=== PATIENT | male | born 1950 | race Caucasian/White ===

== ENCOUNTER 2020-04-06 16:05 | Inpatient (IN) ==
[2020-04-06] MEDS ORDERED: Isovue-370 500 ML BOTTLE IVP ONE (16:21)
[2020-04-06 16:33] LABS: Basophils # 0.1 K/mcL (0.0-0.2); Basophils % 0.8 %; Eosinophils # 0.5 K/mcL (0.0-0.6); Eosinophils % 6.9 %; Hematocrit 21.3 % (37.5-50.1); Hemoglobin 6.3 g/dL (12.9-16.9); Immature Granulocytes % 0.6 % (0-4); Lymphocytes # 0.8 K/mcL (0.6-4.6); Lymphocytes % 11.5 %; Mean Corpuscular HGB Conc 29.6 g/dL (31.6-35.5); Mean Corpuscular Hemoglobin 25.7 pg (28.0-33.3); Mean Corpuscular Volume 86.9 fL (83.0-100.0); Mean Platelet Volume 9.5 fL (9.4-12.4); Monocytes # 0.7 K/mcL (0.0-1.3); Monocytes % 10.9 %; Neutrophils # 4.5 K/mcL (1.6-8.9); Platelet Count 273 K/mcL (140-400); Red Blood Count 2.45 M/mcL (4.19-5.50); Red Cell Distribution Width 16.1 % (11.5-14.5); Segmented Neutrophils % 69.3 %; White Blood Count 6.5 K/mcL (4.3-11.1)
[2020-04-06 16:40] LABS: INR 1.6; Prothrombin Time 18.3 Seconds (9.4-12.1)
[2020-04-06 17:05] LABS: Alanine Aminotransferase 9 Units/L (7-52); Albumin 3.4 g/dL (3.5-5.7); Albumin/Globulin Ratio 1.3 (1.1-2.2); Alkaline Phosphatase 114 Units/L (34-104); Aspartate Amino Transferase 13 Units/L (13-39); BUN/Creatinine Ratio 17 (6-26); Bilirubin,Total 0.5 mg/dL (0.3-1.0); Blood Urea Nitrogen 19 mg/dL (8-23); Calcium 8.5 mg/dL (8.6-10.3); Carbon Dioxide 21 mEq/L (23-29); Chloride 110 mEq/L (98-107); Globulin 2.6 g/dL (2.4-3.5); Glucose 105 mg/dL (70-105); Magnesium 1.7 mg/dL (1.6-2.6); Osmolality,Calculated 291 (280-300); Potassium 4.1 mEq/L (3.5-5.1); Sodium 139 mEq/L (136-145); Troponin I < 0.03 ng/mL (< 0.04); eGFR For African Americans > 60 (> 60); eGFR For Non-African Americans > 60 (> 60)
[2020-04-06] MEDS ORDERED: 0.9 % Sodium Chloride 250 ML ONE ×2 (18:03→22:46)
[2020-04-06] MEDS ORDERED: Naloxone 0.4 MG/ML INJ IVP PRN (19:41)
[2020-04-06] MEDS ORDERED: Ondansetron 4 MG/2 ML VIAL IVP PRN (19:41)
[2020-04-06] MEDS ORDERED: Miconazole 2% ointment 141 APPL/141 GM TUBE TP PRN (19:50)
[2020-04-06] MEDS ORDERED: Loratadine 10 MG TABLET PO PRN (19:50)
[2020-04-06] MEDS ORDERED: Magnesium Oxide 400 MG TABLET PO PRN (19:50)
[2020-04-06] MEDS ORDERED: 0.9 % Sodium Chloride 250 ML IVC SCH (20:15)
[2020-04-07] MEDS: Pantoprazole 40 MG VIAL IVP SCH ×2 (05:38→18:37)
[2020-04-07 05:48] LABS: Hemoglobin 7.7 g/dL (12.9-16.9)
[2020-04-07 05:50] LABS: INR 1.4; Prothrombin Time 16.1 Seconds (9.4-12.1)
[2020-04-07 06:19] LABS: Alanine Aminotransferase 7 Units/L (7-52); Albumin 3.1 g/dL (3.5-5.7); Albumin/Globulin Ratio 1.4 (1.1-2.2); Alkaline Phosphatase 107 Units/L (34-104); Aspartate Amino Transferase 12 Units/L (13-39); BUN/Creatinine Ratio 15 (6-26); Bilirubin,Total 0.6 mg/dL (0.3-1.0); Blood Urea Nitrogen 17 mg/dL (8-23); Calcium 8.2 mg/dL (8.6-10.3); Carbon Dioxide 22 mEq/L (23-29); Chloride 110 mEq/L (98-107); Globulin 2.2 g/dL (2.4-3.5); Glucose 89 mg/dL (70-105); Magnesium 1.6 mg/dL (1.6-2.6); Osmolality,Calculated 287 (280-300); Potassium 4.3 mEq/L (3.5-5.1); Sodium 138 mEq/L (136-145); Total Protein 5.3 g/dL (6.4-8.9); eGFR For African Americans > 60 (> 60); eGFR For Non-African Americans > 60 (> 60)
[2020-04-07 11:27] LABS: Hematocrit 27.2 % (37.5-50.1); Hemoglobin 8.1 g/dL (12.9-16.9)
[2020-04-07] MEDS ORDERED: *HR* FentaNYL (PF) 100 MCG/2 ML VIAL ONE (12:06)
[2020-04-07] MEDS ORDERED: *HR* Midazolam HCl 5 MG/5 ML VIAL IVP ONE ×2 (12:07→12:37)
[2020-04-07] MEDS ORDERED: *HR* FentaNYL (PF) 100 MCG/2 ML VIAL IVP ONE (12:37)
[2020-04-07] MEDS ORDERED: Simethicone 40 MG/0.6 ML MLS IR ONE (12:37)
[2020-04-07] MEDS ORDERED: Tetracaine/Benzocaine/Butamben 1 SPRAY AEROSOL MM ONE (12:37)
[2020-04-07 18:24] LABS: Hemoglobin 8.8 g/dL (12.9-16.9)
[2020-04-08 03:42] LABS: Basophils % 0.6 %; Eosinophils # 0.7 K/mcL (0.0-0.6); Eosinophils % 10.4 %; Hematocrit 28.2 % (37.5-50.1); Hemoglobin 8.6 g/dL (12.9-16.9); Immature Granulocytes % 0.3 % (0-4); Lymphocytes # 0.6 K/mcL (0.6-4.6); Lymphocytes % 9.1 %; Mean Corpuscular HGB Conc 30.5 g/dL (31.6-35.5); Mean Corpuscular Hemoglobin 26.1 pg (28.0-33.3); Mean Corpuscular Volume 85.5 fL (83.0-100.0); Mean Platelet Volume 10.4 fL (9.4-12.4); Monocytes # 0.7 K/mcL (0.0-1.3); Monocytes % 10.6 %; Neutrophils # 4.6 K/mcL (1.6-8.9); Platelet Count 254 K/mcL (140-400); Red Cell Distribution Width 15.5 % (11.5-14.5); White Blood Count 6.7 K/mcL (4.3-11.1)
[2020-04-08 04:09] LABS: BUN/Creatinine Ratio 15 (6-26); Blood Urea Nitrogen 14 mg/dL (8-23); Calcium 8.3 mg/dL (8.6-10.3); Carbon Dioxide 20 mEq/L (23-29); Chloride 109 mEq/L (98-107); Glucose 88 mg/dL (70-105); Magnesium 1.7 mg/dL (1.6-2.6); Osmolality,Calculated 286 (280-300); Phosphorous 3.4 mg/dL (2.7-4.5); Potassium 3.9 mEq/L (3.5-5.1); Sodium 138 mEq/L (136-145); eGFR For African Americans > 60 (> 60); eGFR For Non-African Americans > 60 (> 60)
[2020-04-08] MEDS: Pantoprazole 40 MG VIAL IVP SCH (05:24)
[2020-04-08] MEDS: lisinopriL 5 MG TABLET PO SCH (09:36)
[2020-04-08] MEDS ORDERED: 0.9 % Sodium Chloride 10 ML PF VIAL IR ONE (12:58)
[2020-04-08] MEDS ORDERED: *HR* Phenylephrine 10 MG/ML VIAL IVC ONE (12:58)
[2020-04-08] MEDS ORDERED: *HR* Propofol 500 MG/50 ML BOTTLE IVC ONE (12:58)
[2020-04-08] MEDS ORDERED: Lidocaine -MPF 2% 5 ML VIAL SQ ONE (12:58)
[2020-04-08] MEDS ORDERED: *HR* Water for inj. (sterile) Vial IV ONE (12:58)
[2020-04-08] MEDS: Aspirin 81 MG TAB.CHEW PO SCH (18:39)
[2020-04-08 19:07] LABS: BUN/Creatinine Ratio 10 (6-26); Blood Urea Nitrogen 11 mg/dL (8-23); Calcium 8.4 mg/dL (8.6-10.3); Carbon Dioxide 19 mEq/L (23-29); Chloride 109 mEq/L (98-107); Glucose 140 mg/dL (70-105); Osmolality,Calculated 284 (280-300); Potassium 4.3 mEq/L (3.5-5.1); Sodium 136 mEq/L (136-145); eGFR For African Americans > 60 (> 60); eGFR For Non-African Americans > 60 (> 60)
[2020-04-09 02:29] LABS: Hematocrit 28.3 % (37.5-50.1); Hemoglobin 8.5 g/dL (12.9-16.9); Mean Corpuscular Volume 86.5 fL (83.0-100.0); Mean Platelet Volume 9.9 fL (9.4-12.4); Platelet Count 238 K/mcL (140-400); Red Blood Count 3.27 M/mcL (4.19-5.50); Red Cell Distribution Width 15.6 % (11.5-14.5); White Blood Count 6.2 K/mcL (4.3-11.1)
[2020-04-09] MEDS ORDERED: Heparin 1,000 UNITS/500 mL 500 ML ONE ×2 (07:11→11:32)
[2020-04-09] MEDS ORDERED: Lidocaine/EPI 1:100k 1% 50 ML VIAL ONE ×2 (07:11→11:32)
[2020-04-09] MEDS: lisinopriL 5 MG TABLET PO SCH (13:58)
[2020-04-09] MEDS: Aspirin 81 MG TAB.CHEW PO SCH (13:59)
[2020-04-10 00:51] LABS: Hematocrit 28.3 % (37.5-50.1); Hemoglobin 8.5 g/dL (12.9-16.9); Mean Corpuscular Volume 86.5 fL (83.0-100.0); Mean Platelet Volume 9.7 fL (9.4-12.4); Platelet Count 230 K/mcL (140-400); Red Blood Count 3.27 M/mcL (4.19-5.50); Red Cell Distribution Width 15.7 % (11.5-14.5); White Blood Count 5.5 K/mcL (4.3-11.1)
[2020-04-10 01:13] LABS: BUN/Creatinine Ratio 10 (6-26); Blood Urea Nitrogen 11 mg/dL (8-23); Calcium 8.4 mg/dL (8.6-10.3); Carbon Dioxide 22 mEq/L (23-29); Chloride 110 mEq/L (98-107); Glucose 124 mg/dL (70-105); Osmolality,Calculated 289 (280-300); Potassium 3.7 mEq/L (3.5-5.1); Sodium 139 mEq/L (136-145); eGFR For African Americans > 60 (> 60); eGFR For Non-African Americans > 60 (> 60)
[2020-04-10 07:42] VITALS: BP 105/69
[2020-04-10] MEDS: Aspirin 81 MG TAB.CHEW PO SCH (08:39)
[2020-04-10] MEDS: lisinopriL 5 MG TABLET PO SCH (08:40)
== END 2020-04-10 12:59 | disposition home or self-care (01) | DRG 347 ==
LOC: 2ANU 16:05 → EMEROOARM 16:05 → 2ANU 21:03 → SUATTDRO 04-07 15:58
PROVIDERS: ADMIT Family Medicine; ATTEND Internal Medicine

== ENCOUNTER 2020-04-27 15:21 | Inpatient (IN) ==
[2020-04-27] MEDS ORDERED: Ondansetron 4 MG/2 ML VIAL IVP PRN (19:22)
[2020-04-27] MEDS ORDERED: Ondansetron 4 MG/2 ML VIAL ONE (19:24)
[2020-04-27] MEDS ORDERED: Naloxone 0.4 MG/ML INJ IVP PRN (19:54)
[2020-04-27 20:10] LABS: Eosinophils % 0.5 %; Hematocrit 37.3 % (37.5-50.1); Hemoglobin 11.2 g/dL (12.9-16.9); Immature Granulocytes % 0.5 % (0-4); Lymphocytes # 0.3 K/mcL (0.6-4.6); Lymphocytes % 13.7 %; Mean Corpuscular Volume 86.5 fL (83.0-100.0); Mean Platelet Volume 10.4 fL (9.4-12.4); Monocytes # 0.2 K/mcL (0.0-1.3); Monocytes % 10.9 %; Neutrophils # 1.6 K/mcL (1.6-8.9); Platelet Count 234 K/mcL (140-400); Red Blood Count 4.31 M/mcL (4.19-5.50); Red Cell Distribution Width 15.9 % (11.5-14.5); Segmented Neutrophils % 74.4 %; White Blood Count 2.1 K/mcL (4.3-11.1)
[2020-04-27] MEDS: Pantoprazole 40 MG in 0.9 % Sodium Chloride Mini Bag 100 ML IVC SCH (20:55)
[2020-04-27 21:15] LABS: VBG Ionized Calcium 1.03 mmol/L (1.15-1.35)
[2020-04-27 21:18] LABS: INR 1.1; Prothrombin Time 12.8 Seconds (9.4-12.1)
[2020-04-27 21:20] LABS: Activated Partial Thrombo Time 26.1 Seconds (26.0-36.0)
[2020-04-27 21:26] LABS: Alanine Aminotransferase 16 Units/L (7-52); Albumin 3.4 g/dL (3.5-5.7); Albumin/Globulin Ratio 1.3 (1.1-2.2); Alkaline Phosphatase 102 Units/L (34-104); Aspartate Amino Transferase 17 Units/L (13-39); BUN/Creatinine Ratio 42 (6-26); Bilirubin,Direct 0.4 mg/dL (0.0-0.2); Bilirubin,Indirect 0.7 mg/dL (0.0-1.0); Bilirubin,Total 1.1 mg/dL (0.3-1.0); Blood Urea Nitrogen 47 mg/dL (8-23); Calcium 8.3 mg/dL (8.6-10.3); Carbon Dioxide 17 mEq/L (23-29); Chloride 107 mEq/L (98-107); Globulin 2.6 g/dL (2.4-3.5); Glucose 159 mg/dL (70-105); Magnesium 2.5 mg/dL (1.6-2.6); Osmolality,Calculated 294 (280-300); Phosphorous 3.9 mg/dL (2.7-4.5); Potassium 4.7 mEq/L (3.5-5.1); Sodium 134 mEq/L (136-145); eGFR For African Americans > 60 (> 60); eGFR For Non-African Americans > 60 (> 60)
[2020-04-27] MEDS ORDERED: Calcium Gluconate 1gm/50mL 1 GM/50 ML BAG IVPB PRN (21:51)
[2020-04-27] MEDS ORDERED: Potassium Chloride 40 MEQ/200 ML BAG IVPB PRN (21:51)
[2020-04-27 23:04] LABS: Adenovirus F 40/41 PCR Not detected (Not detect); Astrovirus PCR Not detected (Not detect); C.difficile Toxin A/B Gene PCR Not detected (Not detect); Campylobacter by PCR Not detected (Not detect); Cryptosporidium by PCR Not detected (Not detect); Cyclospora cayetanensis PCR Not detected (Not detect); E. coli O157 by PCR Not detected (Not detect); Entamoeba histolytica PCR Not detected (Not detect); Enteroaggregative E.coli(EAEC) Not detected (Not detect); Enteropathogenic E.coli(EPEC) Not detected (Not detect); Enterotoxigenic E.coli (ETEC) Not detected (Not detect); Giardia lamblia PCR Not detected (Not detect); Norovirus GI/GII PCR Not detected (Not detect); Plesiomonas shigelloides PCR Not detected (Not detect); Rotavirus A PCR Not detected (Not detect); Salmonella PCR Not detected (Not detect); Sapovirus PCR Not detected (Not detect); Shig/EnteroinvasiveE coli EIEC Not detected (Not detect); Shigalike tox-prod E coli STEC Not detected (Not detect); Vibrio PCR Not detected (Not detect); Vibrio cholerae PCR Not detected (Not detect); Yersinia enterocolitica PCR Not detected (Not detect)
[2020-04-28 01:09] LABS: Eosinophils % 0.4 %; Hematocrit 35.6 % (37.5-50.1); Hemoglobin 10.9 g/dL (12.9-16.9); Immature Granulocytes % 1.2 % (0-4); Lymphocytes # 0.3 K/mcL (0.6-4.6); Lymphocytes % 10.7 %; Mean Corpuscular HGB Conc 30.6 g/dL (31.6-35.5); Mean Corpuscular Hemoglobin 25.5 pg (28.0-33.3); Mean Corpuscular Volume 83.4 fL (83.0-100.0); Mean Platelet Volume 10.1 fL (9.4-12.4); Monocytes # 0.3 K/mcL (0.0-1.3); Monocytes % 11.1 %; Platelet Count 227 K/mcL (140-400); Red Blood Count 4.27 M/mcL (4.19-5.50); Red Cell Distribution Width 16.1 % (11.5-14.5); Segmented Neutrophils % 76.6 %; White Blood Count 2.4 K/mcL (4.3-11.1)
[2020-04-28 01:17] LABS: Neutrophils # 1.8 K/mcL (1.6-8.9)
[2020-04-28 01:40] LABS: Platelet Estimate Normal (Normal)
[2020-04-28] MEDS: Pantoprazole 40 MG in 0.9 % Sodium Chloride Mini Bag 100 ML IVC SCH ×6 (02:28→23:12)
[2020-04-28] MEDS ORDERED: Acetaminophen IV 1,000 MG/100 ML INFUS..BTL IVPB ONE ×2 (03:29→20:21)
[2020-04-28] MEDS: 0.9 % Sodium Chloride 1,000 ML IVC SCH ×2 (03:41→17:07)
[2020-04-28 04:37] LABS: Eosinophils % 0.4 %; Hematocrit 34.9 % (37.5-50.1); Hemoglobin 10.6 g/dL (12.9-16.9); INR 1.1; Immature Granulocytes % 0.8 % (0-4); Lymphocytes # 0.2 K/mcL (0.6-4.6); Mean Corpuscular HGB Conc 30.4 g/dL (31.6-35.5); Mean Corpuscular Hemoglobin 25.5 pg (28.0-33.3); Mean Corpuscular Volume 84.1 fL (83.0-100.0); Mean Platelet Volume 10.6 fL (9.4-12.4); Monocytes # 0.4 K/mcL (0.0-1.3); Monocytes % 15.1 %; Platelet Count 225 K/mcL (140-400); Prothrombin Time 12.6 Seconds (9.4-12.1); Red Blood Count 4.15 M/mcL (4.19-5.50); Red Cell Distribution Width 16.2 % (11.5-14.5); Segmented Neutrophils % 77.7 %; White Blood Count 2.5 K/mcL (4.3-11.1)
[2020-04-28 04:39] LABS: Activated Partial Thrombo Time 26.5 Seconds (26.0-36.0)
[2020-04-28 04:52] LABS: Neutrophils # 1.9 K/mcL (1.6-8.9)
[2020-04-28 04:56] LABS: BUN/Creatinine Ratio 43 (6-26); Blood Urea Nitrogen 47 mg/dL (8-23); Carbon Dioxide 17 mEq/L (23-29); Chloride 109 mEq/L (98-107); Glucose 159 mg/dL (70-105); Magnesium 2.4 mg/dL (1.6-2.6); Osmolality,Calculated 294 (280-300); Potassium 4.7 mEq/L (3.5-5.1); Sodium 134 mEq/L (136-145); eGFR For African Americans > 60 (> 60); eGFR For Non-African Americans > 60 (> 60)
[2020-04-28 05:30] LABS: Anisocytosis 1+ (Not Present); Platelet Estimate Normal (Normal)
[2020-04-28 06:29] LABS: Basophils % 0.4 %; Hematocrit 33.5 % (37.5-50.1); Hemoglobin 10.2 g/dL (12.9-16.9); Immature Granulocytes % 1.3 % (0-4); Lymphocytes # 0.2 K/mcL (0.6-4.6); Lymphocytes % 7.9 %; Mean Corpuscular HGB Conc 30.4 g/dL (31.6-35.5); Mean Corpuscular Volume 85.5 fL (83.0-100.0); Mean Platelet Volume 9.9 fL (9.4-12.4); Monocytes # 0.3 K/mcL (0.0-1.3); Monocytes % 14.5 %; Platelet Count 189 K/mcL (140-400); Red Blood Count 3.92 M/mcL (4.19-5.50); Red Cell Distribution Width 16.1 % (11.5-14.5); Segmented Neutrophils % 75.9 %; White Blood Count 2.3 K/mcL (4.3-11.1)
[2020-04-28 06:31] LABS: VBG Ionized Calcium 1.11 mmol/L (1.15-1.35)
[2020-04-28 06:34] LABS: Neutrophils # 1.8 K/mcL (1.6-8.9)
[2020-04-28 06:56] LABS: Anisocytosis 1+ (Not Present); Platelet Estimate Normal (Normal)
[2020-04-28] MEDS: *HR* FentaNYL (PF) 100 MCG/2 ML VIAL IVP PRN ×2 (12:30→15:42)
[2020-04-28] MEDS ORDERED: Ondansetron 4 MG/2 ML VIAL IVP PRN (18:54)
[2020-04-28] MEDS ORDERED: Naloxone 0.4 MG/ML INJ IVP PRN (18:54)
[2020-04-28] MEDS ORDERED: *HR* FentaNYL (PF) 100 MCG/2 ML VIAL IVP PRN (18:54)
[2020-04-28] MEDS ORDERED: Miconazole 2% ointment 141 APPL/141 GM TUBE TP PRN (18:54)
[2020-04-28] MEDS: Hydrocortisone Sodium Succ 100 MG/2 ML VIAL IVP SCH (20:08)
[2020-04-29] MEDS ORDERED: Acetaminophen IV 1,000 MG/100 ML INFUS..BTL IVPB ONE (02:01)
[2020-04-29] MEDS: Pantoprazole 40 MG in 0.9 % Sodium Chloride Mini Bag 100 ML IVC SCH (05:33)
[2020-04-29] MEDS: Hydrocortisone Sodium Succ 100 MG/2 ML VIAL IVP SCH (05:33)
[2020-04-29] MEDS: 0.9 % Sodium Chloride 1,000 ML IVC SCH ×3 (06:02→17:46)
[2020-04-29 06:07] LABS: VBG Ionized Calcium 1.18 mmol/L (1.15-1.35)
[2020-04-29 06:09] LABS: Mean Platelet Volume 10.2 fL (9.4-12.4); Red Cell Distribution Width 16.3 % (11.5-14.5)
[2020-04-29 06:11] LABS: Basophils % 0.5 %; Eosinophils % 0.5 %; Hematocrit 30.4 % (37.5-50.1); Hemoglobin 9.2 g/dL (12.9-16.9); Immature Granulocytes % 1.6 % (0-4); Lymphocytes # 0.2 K/mcL (0.6-4.6); Lymphocytes % 10.1 %; Mean Corpuscular HGB Conc 30.3 g/dL (31.6-35.5); Mean Corpuscular Hemoglobin 25.3 pg (28.0-33.3); Mean Corpuscular Volume 83.5 fL (83.0-100.0); Monocytes # 0.2 K/mcL (0.0-1.3); Monocytes % 10.1 %; Neutrophils # 1.5 K/mcL (1.6-8.9); Nucleated Red Blood Cells 1.6 /100 WBC (0); Platelet Count 177 K/mcL (140-400); Red Blood Count 3.64 M/mcL (4.19-5.50); Segmented Neutrophils % 77.2 %; White Blood Count 1.9 K/mcL (4.3-11.1)
[2020-04-29 06:20] LABS: INR 1.1; Prothrombin Time 13.1 Seconds (9.4-12.1)
[2020-04-29 06:21] LABS: Activated Partial Thrombo Time 24.4 Seconds (26.0-36.0)
[2020-04-29 06:33] LABS: Alanine Aminotransferase 12 Units/L (7-52); Albumin/Globulin Ratio 1.2 (1.1-2.2); Alkaline Phosphatase 84 Units/L (34-104); Aspartate Amino Transferase 12 Units/L (13-39); BUN/Creatinine Ratio 44 (6-26); Bilirubin,Total 0.7 mg/dL (0.3-1.0); Blood Urea Nitrogen 47 mg/dL (8-23); Calcium 8.4 mg/dL (8.6-10.3); Carbon Dioxide 17 mEq/L (23-29); Chloride 110 mEq/L (98-107); Globulin 2.5 g/dL (2.4-3.5); Glucose 129 mg/dL (70-105); Magnesium 2.4 mg/dL (1.6-2.6); Osmolality,Calculated 294 (280-300); Potassium 4.3 mEq/L (3.5-5.1); Sodium 135 mEq/L (136-145); Total Protein 5.5 g/dL (6.4-8.9); eGFR For African Americans > 60 (> 60); eGFR For Non-African Americans > 60 (> 60)
[2020-04-29 06:42] LABS: Anisocytosis 1+ (Not Present)
[2020-04-29 06:43] LABS: Platelet Estimate Normal (Normal); Reactive Lymphocytes Present (Not Present)
[2020-04-29] MEDS ORDERED: cefOXitin 2,000 MG in Water for inj. (sterile) 20 ML IVP ONE (10:15)
[2020-04-29] MEDS ORDERED: *HR* Succinylcholine 200 MG/10 ML VIAL IVP ONE (10:37)
[2020-04-29] MEDS ORDERED: Dexamethasone 4 MG/ML VIAL ONE (10:37)
[2020-04-29] MEDS ORDERED: *HR* FentaNYL (PF) 100 MCG/2 ML VIAL ONE (10:37)
[2020-04-29] MEDS ORDERED: Lidocaine -MPF 2% 2 ML VIAL ONE (10:37)
[2020-04-29] MEDS ORDERED: *HR* Propofol 200 MG/20 ML VIAL IVP ONE (10:37)
[2020-04-29] MEDS ORDERED: *HR* Rocuronium Bromide 50 MG/5 ML VIAL ONE (10:37)
[2020-04-29] MEDS ORDERED: Ondansetron 4 MG/2 ML VIAL ONE (10:37)
[2020-04-29] MEDS ORDERED: CefOXitin 2,000 MG VIAL ONE (10:59)
[2020-04-29] MEDS ORDERED: cefOXitin 1,000 MG, Sodium Chloride IRRigation 1,000 ML IR ONE (11:00)
[2020-04-29] MEDS ORDERED: *HR* PHENYLEPHRINE 1,000 MCG/10 ML SYRINGE IVP ONE (11:08)
[2020-04-29] MEDS ORDERED: *HR* HYDROMORPHONE 2 MG/ML VIAL ONE (11:16)
[2020-04-29] MEDS: *HR* HYDROmorphone PF 0.5 MG/0.5 ML SYRINGE IVP PRN ×4 (13:31→13:46)
[2020-04-29] MEDS ORDERED: Povidone-Iodine 28.4 GM TUBE TP ONE (13:33)
[2020-04-29] MEDS ORDERED: Miconazole 2% ointment 141 APPL/141 GM TUBE TP PRN (14:41)
[2020-04-29] MEDS ORDERED: Ondansetron 4 MG/2 ML VIAL IVP PRN (14:41)
[2020-04-29] MEDS ORDERED: Naloxone 0.4 MG/ML INJ IVP PRN (14:41)
[2020-04-29] MEDS: Pantoprazole 40 MG VIAL IVP SCH (17:47)
[2020-04-29 17:55] LABS: Hematocrit 31.2 % (37.5-50.1); Hemoglobin 9.3 g/dL (12.9-16.9)
[2020-04-29] MEDS ORDERED: Pantoprazole 40 MG VIAL IVP SCH (18:00)
[2020-04-30] MEDS: Pantoprazole 40 MG VIAL IVP SCH ×2 (05:02→16:56)
[2020-04-30 05:06] LABS: Basophils % 0.6 %; Red Cell Distribution Width 16.4 % (11.5-14.5)
[2020-04-30 05:08] LABS: Hematocrit 28.6 % (37.5-50.1); Hemoglobin 8.8 g/dL (12.9-16.9); Immature Granulocytes % 0.6 % (0-4); Lymphocytes # 0.1 K/mcL (0.6-4.6); Lymphocytes % 4.3 %; Mean Corpuscular HGB Conc 30.8 g/dL (31.6-35.5); Mean Corpuscular Hemoglobin 25.9 pg (28.0-33.3); Mean Corpuscular Volume 84.1 fL (83.0-100.0); Mean Platelet Volume 9.7 fL (9.4-12.4); Monocytes # 0.2 K/mcL (0.0-1.3); Monocytes % 10.5 %; Platelet Count 175 K/mcL (140-400); White Blood Count 1.6 K/mcL (4.3-11.1)
[2020-04-30 05:13] LABS: Neutrophils # 1.3 K/mcL (1.6-8.9)
[2020-04-30 05:23] LABS: BUN/Creatinine Ratio 31 (6-26); Blood Urea Nitrogen 36 mg/dL (8-23); Calcium 8.1 mg/dL (8.6-10.3); Carbon Dioxide 19 mEq/L (23-29); Chloride 115 mEq/L (98-107); Glucose 142 mg/dL (70-105); Osmolality,Calculated 301 (280-300); Potassium 4.4 mEq/L (3.5-5.1); Sodium 140 mEq/L (136-145); eGFR For African Americans > 60 (> 60); eGFR For Non-African Americans > 60 (> 60)
[2020-04-30] MEDS: 0.9 % Sodium Chloride 1,000 ML IVC SCH ×2 (06:45→20:03)
[2020-04-30] MEDS: *HR* FentaNYL (PF) 100 MCG/2 ML VIAL IVP PRN ×2 (07:40→17:56)
[2020-04-30] MEDS ORDERED: *HR* Metoprolol 5 MG/5 ML VIAL IVP PRN (07:58)
[2020-04-30 19:44] LABS: Hematocrit 25.9 % (37.5-50.1); Hemoglobin 8.1 g/dL (12.9-16.9)
[2020-05-01] MEDS: Pantoprazole 40 MG VIAL IVP SCH ×2 (06:05→17:01)
[2020-05-01] MEDS: 0.9 % Sodium Chloride 1,000 ML IVC SCH ×3 (08:09→22:48)
[2020-05-01 10:37] LABS: Hematocrit 25.4 % (37.5-50.1); Hemoglobin 7.8 g/dL (12.9-16.9); Mean Corpuscular HGB Conc 30.7 g/dL (31.6-35.5); Mean Corpuscular Hemoglobin 26.4 pg (28.0-33.3); Mean Corpuscular Volume 85.8 fL (83.0-100.0); Mean Platelet Volume 10.8 fL (9.4-12.4); Monocytes # 0.3 K/mcL (0.0-1.3); Platelet Count 145 K/mcL (140-400); Red Blood Count 2.96 M/mcL (4.19-5.50); Red Cell Distribution Width 16.9 % (11.5-14.5)
[2020-05-01 10:49] LABS: White Blood Count 3.1 K/mcL (4.3-11.1)
[2020-05-01 10:57] LABS: Calcium 7.6 mg/dL (8.6-10.3)
[2020-05-01 11:39] LABS: Lymphocytes # 0.3 K/mcL (0.6-4.6); Neutrophils # 2.6 K/mcL (1.6-8.9); Platelet Estimate Normal (Normal)
[2020-05-01] MEDS: 0.9 % Sodium Chloride 500 ML IVC PRN ×2 (15:40→16:17)
[2020-05-01 16:25] LABS: Hematocrit 27.5 % (37.5-50.1); Hemoglobin 8.1 g/dL (12.9-16.9)
[2020-05-01] MEDS: *HR* FentaNYL (PF) 100 MCG/2 ML VIAL IVP PRN (22:15)
[2020-05-02] MEDS: Piperacillin/Tazobactam 3.375 GM in 0.9 % Sodium Chloride Mini Bag 100 ML IVPB SCH ×3 (00:06→16:17)
[2020-05-02] MEDS: *HR* FentaNYL (PF) 100 MCG/2 ML VIAL IVP PRN ×2 (01:24→04:41)
[2020-05-02] MEDS: Pantoprazole 40 MG VIAL IVP SCH (04:40)
[2020-05-02 07:25] LABS: Red Cell Distribution Width 17.2 % (11.5-14.5)
[2020-05-02 07:27] LABS: Hematocrit 29.6 % (37.5-50.1); Hemoglobin 8.7 g/dL (12.9-16.9); Mean Corpuscular HGB Conc 29.4 g/dL (31.6-35.5); Mean Corpuscular Hemoglobin 25.1 pg (28.0-33.3); Mean Corpuscular Volume 85.3 fL (83.0-100.0); Mean Platelet Volume 11.1 fL (9.4-12.4); Monocytes # 0.1 K/mcL (0.0-1.3); Platelet Count 136 K/mcL (140-400); Red Blood Count 3.47 M/mcL (4.19-5.50); White Blood Count 1.4 K/mcL (4.3-11.1)
[2020-05-02 07:39] LABS: Calcium 7.9 mg/dL (8.6-10.3); Potassium 4.4 mEq/L (3.5-5.1)
[2020-05-02] MEDS ORDERED: 0.9 % Sodium Chloride 1,000 ML IVC SCH ×2 (08:00→21:09)
[2020-05-02] MEDS: 0.9 % Sodium Chloride 1,000 ML IVC SCH ×2 (08:01→14:50)
[2020-05-02 08:10] LABS: Lymphocytes # 0.2 K/mcL (0.6-4.6); Neutrophils # 1.2 K/mcL (1.6-8.9); Platelet Estimate Normal (Normal); Toxic Granulation Present (Not Present)
[2020-05-02 08:11] LABS: Anisocytosis 1+ (Not Present); Poikilocytosis 1+ (Not Present)
[2020-05-02] MEDS: 0.9 % Sodium Chloride 500 ML IVC PRN ×3 (10:15→11:46)
[2020-05-02] MEDS: 0.9 % Sodium Chloride 1,000 ML IV SCH ×2 (12:32→13:40)
[2020-05-02 13:00] LABS: Hematocrit 28.4 % (37.5-50.1); Hemoglobin 8.6 g/dL (12.9-16.9)
[2020-05-02] MEDS ORDERED: *HR* FentaNYL (PF) 100 MCG/2 ML VIAL IVP PRN (17:36)
[2020-05-02] MEDS ORDERED: Albuterol 2.5 MG/3 ML NEBULIZER IH PRN (17:36)
[2020-05-02] MEDS ORDERED: Ondansetron 4 MG/2 ML VIAL ONE (17:50)
[2020-05-02] MEDS ORDERED: EPHEDrine 50 MG/ML VIAL ONE (17:50)
[2020-05-02] MEDS ORDERED: *HR* FentaNYL (PF) 100 MCG/2 ML VIAL ONE (17:50)
[2020-05-02] MEDS ORDERED: Dexamethasone 4 MG/ML VIAL ONE (17:50)
[2020-05-02] MEDS ORDERED: *HR* PHENYLEPHRINE 1,000 MCG/10 ML SYRINGE IVP ONE (17:50)
[2020-05-02] MEDS ORDERED: Lidocaine -MPF 2% 2 ML VIAL ONE (17:50)
[2020-05-02] MEDS ORDERED: *HR* Succinylcholine 200 MG/10 ML VIAL IVP ONE (17:50)
[2020-05-02] MEDS ORDERED: *HR* Rocuronium Bromide 50 MG/5 ML VIAL ONE ×3 (17:50→20:05)
[2020-05-02] MEDS ORDERED: *HR* Etomidate 40 MG/20 ML VIAL IVP ONE (17:50)
[2020-05-02] MEDS ORDERED: *HR* HYDROMORPHONE 2 MG/ML VIAL ONE (19:01)
[2020-05-02] MEDS ORDERED: *HR* Vasopressin 20 UNIT/ML VIAL ONE (19:53)
[2020-05-02] MEDS ORDERED: Albumin Human 5% 12.5 GM/250 ML IV.SOLN ONE (20:15)
[2020-05-02] MEDS ORDERED: Ondansetron 4 MG/2 ML VIAL IVP PRN (21:09)
[2020-05-02 21:51] LABS: Bacteria,Urine Few per hpf (None-Few); Bilirubin,Urine Negative (Negative); Blood,Urine Large (Negative); Calcium Oxalate Crystals,Urine Present; Clarity,Urine Clear (Clear); Color,Urine Light-Yellow (Yellow); Glucose,Urine (UA) Normal (Normal); Hyaline Casts,Urine Few per lpf (None Seen); Ketones,Urine Negative (Negative); Leukocyte Esterase,Urine Small (Negative); Mucus,Urine Few per lpf (None-Few); Nitrite,Urine Negative (Negative); Protein,Urine Negative (Neg-Trace); RBC,Urine TNTC per hpf (0-3); Urobilinogen,Urine Normal (Normal)
[2020-05-02 21:58] LABS: Sodium, Urine 83.2 mEq/L
[2020-05-02] MEDS ORDERED: 0.9 % Sodium Chloride 1,000 ML IVC ONE (22:25)
[2020-05-02 22:42] LABS: Hemoglobin 8.1 g/dL (12.9-16.9); Mean Platelet Volume 10.7 fL (9.4-12.4)
[2020-05-02 22:44] LABS: Hematocrit 26.5 % (37.5-50.1); Mean Corpuscular HGB Conc 30.6 g/dL (31.6-35.5); Mean Corpuscular Hemoglobin 26.5 pg (28.0-33.3); Mean Corpuscular Volume 86.6 fL (83.0-100.0); Platelet Count 123 K/mcL (140-400); Red Blood Count 3.06 M/mcL (4.19-5.50); Red Cell Distribution Width 17.3 % (11.5-14.5)
[2020-05-02 22:54] LABS: INR 1.3; Prothrombin Time 14.9 Seconds (9.4-12.1)
[2020-05-02 23:03] LABS: White Blood Count 0.6 K/mcL (4.3-11.1)
[2020-05-02 23:14] LABS: Neutrophils # 0.5 K/mcL (1.6-8.9); Platelet Estimate Decreased (Normal); Toxic Granulation Present (Not Present)
[2020-05-02 23:16] LABS: Calcium 6.9 mg/dL (8.6-10.3)
[2020-05-03] MEDS: Ringers Solution, Lactated 1,000 ML IVC SCH ×2 (00:01→09:28)
[2020-05-03] MEDS: Norepinephrine 4 MG/254 ML IV.SOLN IVC SCH ×4 (00:01→21:47)
[2020-05-03] MEDS: Piperacillin/Tazobactam 3.375 GM in 0.9 % Sodium Chloride Mini Bag 100 ML IVPB SCH ×3 (00:02→16:13)
[2020-05-03] MEDS ORDERED: Acetaminophen IV 1,000 MG/100 ML INFUS..BTL IVPB ONE (01:53)
[2020-05-03] MEDS: Albumin 25% 25gram/100mL 25 GM/100 ML IV.SOLN IVC SCH ×2 (02:24→04:13)
[2020-05-03 03:56] LABS: Hematocrit 25.2 % (37.5-50.1); Hemoglobin 7.7 g/dL (12.9-16.9); Lymphocytes # 0.1 K/mcL (0.6-4.6); Mean Corpuscular HGB Conc 30.6 g/dL (31.6-35.5); Mean Corpuscular Hemoglobin 25.8 pg (28.0-33.3); Mean Corpuscular Volume 84.3 fL (83.0-100.0); Monocytes # 0.1 K/mcL (0.0-1.3); Platelet Count 150 K/mcL (140-400); Red Blood Count 2.99 M/mcL (4.19-5.50); Red Cell Distribution Width 17.2 % (11.5-14.5); White Blood Count 1.2 K/mcL (4.3-11.1)
[2020-05-03] MEDS: Pantoprazole 40 MG VIAL IVP SCH ×2 (04:12→18:47)
[2020-05-03 04:14] LABS: Magnesium 1.8 mg/dL (1.6-2.6); Potassium 3.4 mEq/L (3.5-5.1)
[2020-05-03 04:36] LABS: Anisocytosis 1+ (Not Present); Neutrophils # 1.1 K/mcL (1.6-8.9); Platelet Estimate Normal (Normal); Toxic Granulation Present (Not Present)
[2020-05-03] MEDS: Potassium Chloride 40 MEQ/200 ML BAG IVPB PRN ×5 (05:24→17:21)
[2020-05-03 05:36] LABS: VBG Ionized Calcium 1.05 mmol/L (1.15-1.35)
[2020-05-03] MEDS: Calcium Gluconate 1gm/50mL 1 GM/50 ML BAG IVPB SCH (06:01)
[2020-05-03] MEDS ORDERED: Ringers Solution, Lactated 1,000 ML IVC ONE (07:33)
[2020-05-03] MEDS ORDERED: Ringers Solution, Lactated 2,000 ML ONE (07:34)
[2020-05-03] MEDS: *HR* Dextrose 50 % in Water (Vial) 50 ML VIAL IVP ONE ×3 (07:40→14:22)
[2020-05-03] MEDS ORDERED: Albumin Human 5% 12.5 GM/250 ML IV.SOLN ONE (09:17)
[2020-05-03 09:21] LABS: VBG Ionized Calcium 1.12 mmol/L (1.15-1.35)
[2020-05-03 09:34] LABS: Calcium 7.4 mg/dL (8.6-10.3); Magnesium 2.1 mg/dL (1.6-2.6); Potassium 3.7 mEq/L (3.5-5.1)
[2020-05-03 09:34] LABS: Creatinine,Urine 164 mg/dL
[2020-05-03 09:35] LABS: Alanine Aminotransferase 21 Units/L (7-52); Alkaline Phosphatase 66 Units/L (34-104); Aspartate Amino Transferase 44 Units/L (13-39)
[2020-05-03] MEDS: Albumin Human 5% 12.5 GM/250 ML IV.SOLN IVPB SCH ×2 (09:37→13:57)
[2020-05-03] MEDS ORDERED: *HR* Dextrose 50 % in Water (Vial) 50 ML VIAL ONE (14:18)
[2020-05-03 15:41] LABS: Potassium 3.7 mEq/L (3.5-5.1)
[2020-05-03] MEDS ORDERED: Piperacillin/Tazobactam 3.375 GM VIAL ONE (16:12)
[2020-05-03] MEDS ORDERED: *HR* Dextrose 50 % in Water (Vial) 50 ML VIAL IVP PRN (17:11)
[2020-05-03] MEDS ORDERED: Naloxone 0.4 MG/ML INJ ONE ×2 (22:38→22:43)
[2020-05-03] MEDS: Amiodarone Premix 360 MG/200 ML BAG IVC ONE (23:15)
[2020-05-03] MEDS ORDERED: Naloxone 0.4 MG/ML INJ IVP ONE ×2 (23:21)
[2020-05-03 23:28] LABS: Hematocrit 24.6 % (37.5-50.1); Hemoglobin 7.3 g/dL (12.9-16.9); Mean Corpuscular HGB Conc 29.7 g/dL (31.6-35.5); Mean Corpuscular Hemoglobin 25.9 pg (28.0-33.3); Mean Corpuscular Volume 87.2 fL (83.0-100.0); Nucleated Red Blood Cells 0.3 /100 WBC (0); Platelet Count 182 K/mcL (140-400); Red Blood Count 2.82 M/mcL (4.19-5.50); Red Cell Distribution Width 17.7 % (11.5-14.5)
[2020-05-03 23:29] LABS: White Blood Count 5.9 K/mcL (4.3-11.1)
[2020-05-03 23:33] LABS: VBG Ionized Calcium 1.15 mmol/L (1.15-1.35)
[2020-05-03 23:34] LABS: INR 1.6; Prothrombin Time 17.9 Seconds (9.4-12.1)
[2020-05-03] MEDS ORDERED: 0.9 % Sodium Chloride 500 ML IVC ONE (23:45)
[2020-05-03 23:55] LABS: Albumin 2.8 g/dL (3.5-5.7); Albumin/Globulin Ratio 1.4 (1.1-2.2); Bilirubin,Total 1.9 mg/dL (0.3-1.0); Calcium 7.8 mg/dL (8.6-10.3); Potassium 4.7 mEq/L (3.5-5.1); Total Protein 4.8 g/dL (6.4-8.9)
[2020-05-04] MEDS ORDERED: Artificial Tears SOLN 15 ML BOTTLE BOTH EYES PRN (00:05)
[2020-05-04 00:10] LABS: Anisocytosis 1+ (Not Present); Lymphocytes # 1.1 K/mcL (0.6-4.6); Monocytes # 0.1 K/mcL (0.0-1.3); Neutrophils # 4.3 K/mcL (1.6-8.9); Platelet Estimate Normal (Normal); Poikilocytosis 1+ (Not Present); Toxic Granulation Present (Not Present)
[2020-05-04 00:22] LABS: ABG Base Excess -15 mEq/L (-2 to 3); ABG HCO3 15 mEq/L (21-27); ABG Oxygen Saturation 95 % (95-98); ABG PCO2 53 mmHg (35-45); ABG PH 7.07 pH Units (7.32-7.45); ABG PO2 108 mmHg (85-104); ABG TCO2 17 mEq/L (20-26); Blood Gas Modality ASSIST CONTROL; Blood Gas VT 500 cc
[2020-05-04 00:25] LABS: Magnesium 2.3 mg/dL (1.6-2.6); Phosphorous 7.2 mg/dL (2.7-4.5)
[2020-05-04] MEDS ORDERED: Sodium Bicarbonate 150 MEQ in D5% in Water 1,000 ML IVC SCH (00:30)
[2020-05-04] MEDS: Midazolam HCl 50 MG/100 ML IV.SOLN IVC SCH (00:41)
[2020-05-04] MEDS: FentaNYL (PF) 1,000 MCG/100 ML IV.SOLN IVC SCH (00:41)
[2020-05-04] MEDS: Piperacillin/Tazobactam 3.375 GM in 0.9 % Sodium Chloride Mini Bag 100 ML IVPB SCH ×4 (01:42→23:55)
[2020-05-04] MEDS: Norepinephrine 4 MG/254 ML IV.SOLN IVC SCH (03:00)
[2020-05-04 04:41] LABS: ABG Base Excess -9 mEq/L (-2 to 3); ABG HCO3 19 mEq/L (21-27); ABG Oxygen Saturation 100 % (95-98); ABG PCO2 52 mmHg (35-45); ABG PH 7.17 pH Units (7.32-7.45); ABG PO2 215 mmHg (85-104); ABG TCO2 20 mEq/L (20-26); Blood Gas Modality ASSIST CONTROL; Blood Gas VT 500 cc
[2020-05-04 05:07] LABS: VBG Ionized Calcium 1.09 mmol/L (1.15-1.35)
[2020-05-04] MEDS: Amiodarone Premix 360 MG/200 ML BAG IVC ONE (05:16)
[2020-05-04 05:23] LABS: Albumin 2.5 g/dL (3.5-5.7); Albumin/Globulin Ratio 1.3 (1.1-2.2); Bilirubin,Total 1.8 mg/dL (0.3-1.0); Calcium 7.7 mg/dL (8.6-10.3); Potassium 5.2 mEq/L (3.5-5.1); Total Protein 4.5 g/dL (6.4-8.9)
[2020-05-04] MEDS ORDERED: Norepinephrine 8 MG/508 ML IV.SOLN IVC SCH (05:30)
[2020-05-04 05:50] LABS: Hematocrit 23.7 % (37.5-50.1); Mean Corpuscular HGB Conc 29.5 g/dL (31.6-35.5); Mean Corpuscular Hemoglobin 26.1 pg (28.0-33.3); Mean Corpuscular Volume 88.4 fL (83.0-100.0); Mean Platelet Volume 11.2 fL (9.4-12.4); Monocytes # 0.2 K/mcL (0.0-1.3); Platelet Count 160 K/mcL (140-400); Red Blood Count 2.68 M/mcL (4.19-5.50); Red Cell Distribution Width 17.7 % (11.5-14.5); White Blood Count 4.4 K/mcL (4.3-11.1)
[2020-05-04] MEDS: Pantoprazole 40 MG VIAL IVP SCH ×2 (05:54→18:08)
[2020-05-04] MEDS: Calcium Gluconate 1gm/50mL 1 GM/50 ML BAG IVPB SCH (05:54)
[2020-05-04] MEDS: Albumin 25% 12.5gm/50mL 12.5 GM/50 ML IV.SOLN IVPB SCH ×2 (05:55→17:05)
[2020-05-04 05:59] LABS: Magnesium 2.2 mg/dL (1.6-2.6); Phosphorous 7.2 mg/dL (2.7-4.5)
[2020-05-04] MEDS: Chlorhexidine Rinse 15 ML MOUTHWASH MM SCH ×3 (06:42→19:52)
[2020-05-04] MEDS: Artificial Tears SOLN 15 ML BOTTLE BOTH EYES SCH ×5 (06:44→19:52)
[2020-05-04 06:50] LABS: Lymphocytes # 0.3 K/mcL (0.6-4.6); Neutrophils # 3.6 K/mcL (1.6-8.9)
[2020-05-04 06:51] LABS: Anisocytosis 1+ (Not Present); Platelet Estimate Normal (Normal); Poikilocytosis 1+ (Not Present); Toxic Granulation Present (Not Present)
[2020-05-04] MEDS: Norepinephrine 8 MG in 0.9 % Sodium Chloride 250 ML IVC SCH ×2 (07:25→12:59)
[2020-05-04] MEDS: Vasopressin 40 UNIT in D5% in Water 100 ML IVC SCH ×2 (08:55→11:48)
[2020-05-04] MEDS: Sodium Bicarbonate 150 MEQ in D5% in Water 1,000 ML IVC SCH ×2 (08:56→15:15)
[2020-05-04 10:58] LABS: Troponin I 0.05 ng/mL (< 0.04)
[2020-05-04] MEDS ORDERED: D10% in Water 500 ML IVC PRN (11:12)
[2020-05-04 11:54] LABS: ABG Base Excess -7 mEq/L (-2 to 3); ABG HCO3 19 mEq/L (21-27); ABG Oxygen Saturation 98 % (95-98); ABG PCO2 38 mmHg (35-45); ABG PO2 114 mmHg (85-104); ABG TCO2 20 mEq/L (20-26); Blood Gas Modality ASSIST CONTROL; Blood Gas VT 500 cc
[2020-05-04] MEDS ORDERED: Dextrose Gel 15 GM/37.5 ML TUBE PO PRN ×2 (15:18)
[2020-05-04] MEDS ORDERED: D5% in Water 1,000 ML IVC PRN (15:18)
[2020-05-04] MEDS ORDERED: Clinimix 5%-20% SOLUTION 2,000 ML with MVI, adult with vitamin K 10 ML, Sodium Acetat... IVC SCH (17:00)
[2020-05-04] MEDS: Insulin LISPRO 300 UNITS/3 ML VIAL SQ SCH ×2 (17:17→23:22)
[2020-05-04] MEDS: Norepinephrine 16 MG in 0.9 % Sodium Chloride 500 ML IVC SCH (18:09)
[2020-05-05] MEDS: Insulin LISPRO 300 UNITS/3 ML VIAL SQ SCH ×3 (00:08→09:24)
[2020-05-05] MEDS: Albumin 25% 12.5gm/50mL 12.5 GM/50 ML IV.SOLN IVPB SCH ×2 (00:09→18:55)
[2020-05-05] MEDS: FentaNYL (PF) 1,000 MCG/100 ML IV.SOLN IVC SCH ×2 (00:21→17:01)
[2020-05-05 03:59] LABS: Hemoglobin 6.7 g/dL (12.9-16.9); Mean Corpuscular HGB Conc 30.5 g/dL (31.6-35.5); Mean Corpuscular Hemoglobin 25.6 pg (28.0-33.3); Mean Platelet Volume 11.1 fL (9.4-12.4); Platelet Count 122 K/mcL (140-400); Red Blood Count 2.62 M/mcL (4.19-5.50); Red Cell Distribution Width 17.9 % (11.5-14.5); White Blood Count 4.3 K/mcL (4.3-11.1)
[2020-05-05] MEDS: Artificial Tears SOLN 15 ML BOTTLE BOTH EYES SCH ×3 (04:00→12:41)
[2020-05-05 04:01] LABS: VBG Ionized Calcium 1.05 mmol/L (1.15-1.35)
[2020-05-05 04:17] LABS: Anisocytosis 1+ (Not Present); Hypochromasia Present (Not Present); Lymphocytes # 0.4 K/mcL (0.6-4.6); Magnesium 2.2 mg/dL (1.6-2.6); Monocytes # 0.1 K/mcL (0.0-1.3); Neutrophils # 3.8 K/mcL (1.6-8.9); Phosphorous 5.4 mg/dL (2.7-4.5); Platelet Estimate Slight Decrease (Normal)
[2020-05-05 04:18] LABS: Toxic Granulation Present (Not Present)
[2020-05-05] MEDS: Sodium Bicarbonate 150 MEQ in D5% in Water 1,000 ML IVC SCH (04:20)
[2020-05-05 05:03] LABS: ABG Base Excess -5 mEq/L (-2 to 3); ABG HCO3 20 mEq/L (21-27); ABG Oxygen Saturation 98 % (95-98); ABG PCO2 37 mmHg (35-45); ABG PH 7.35 pH Units (7.32-7.45); ABG PO2 107 mmHg (85-104); ABG TCO2 21 mEq/L (20-26); Blood Gas Modality ASSIST CONTROL; Blood Gas VT 500 cc
[2020-05-05 05:31] LABS: Calcium 7.7 mg/dL (8.6-10.3)
[2020-05-05] MEDS: Pantoprazole 40 MG VIAL IVP SCH ×2 (06:17→18:57)
[2020-05-05] MEDS: Vasopressin 40 UNIT in D5% in Water 100 ML IVC SCH (07:36)
[2020-05-05] MEDS: Piperacillin/Tazobactam 3.375 GM in 0.9 % Sodium Chloride Mini Bag 100 ML IVPB SCH (09:12)
[2020-05-05] MEDS: Chlorhexidine Rinse 15 ML MOUTHWASH MM SCH (09:13)
[2020-05-05] MEDS: Norepinephrine 16 MG in 0.9 % Sodium Chloride 500 ML IVC SCH (09:34)
[2020-05-05] MEDS ORDERED: Furosemide 80 MG in 0.9 % Sodium Chloride 50 ML IV STA (09:51)
[2020-05-05] MEDS ORDERED: 0.9 % Sodium Chloride 250 ML IVC SCH (10:00)
[2020-05-05] MEDS: Midazolam HCl 50 MG/100 ML IV.SOLN IVC SCH (10:37)
[2020-05-05] MEDS ORDERED: Glycopyrrolate 0.2 MG/ML VIAL IVP ONE (11:16)
[2020-05-05] MEDS: *HR* LORazepam 2 MG/ML VIAL IVP PRN ×3 (12:25→21:55)
[2020-05-05] MEDS: Atropine Sulfate 1% 40 DROP/2 ML BOTTLE SL PRN ×2 (12:40→14:57)
[2020-05-05] MEDS ORDERED: Scopolamine Patch 1.5 MG PATCH.TD72 TD SCH (13:15)
[2020-05-05] MEDS ORDERED: Glycopyrrolate 0.2 MG/ML VIAL IVP PRN (15:39)
[2020-05-05] MEDS: Ringers Solution, Lactated 1,000 ML IVC SCH (18:56)
[2020-05-05] MEDS ORDERED: Atropine Sulfate 1% 40 DROP/2 ML BOTTLE SL PRN (19:00)
[2020-05-05] MEDS ORDERED: Ondansetron 4 MG/2 ML VIAL IVP PRN (19:00)
[2020-05-05] MEDS ORDERED: FentaNYL (PF) 1,000 MCG/100 ML IV.SOLN IVC SCH (19:00)
[2020-05-05] MEDS ORDERED: Artificial Tears SOLN 15 ML BOTTLE BOTH EYES PRN (19:00)
[2020-05-06 07:36] VITALS: BP 94/61
[2020-05-06] MEDS ORDERED: Haloperidol Lactate 5 MG/ML VIAL IVP PRN (09:28)
[2020-05-06] MEDS ORDERED: *HR* FentaNYL (PF) 100 MCG/2 ML VIAL IVP PRN (09:31)
[2020-05-06] MEDS ORDERED: FentaNYL (PF) 1,000 MCG/100 ML IV.SOLN IVC SCH (09:31)
[2020-05-06] MEDS: *HR* LORazepam 2 MG/ML VIAL IVP PRN (09:50)
[2020-05-08] MEDS ORDERED: Scopolamine Patch 1.5 MG PATCH.TD72 TD SCH (13:15)
== END 2020-05-06 19:08 | disposition expired | DRG 329 ==
LOC: ICNU 18:23 → SUATTDRO 18:23 → 3ANU 04-28 17:38 → ICNU 05-02 21:00 → 2ANU 05-05 18:09
PROVIDERS: ADMIT Pediatrics; ATTEND Internal Medicine